=== PATIENT | female | born 1955 | race Caucasian/White ===

== ENCOUNTER 2017-05-11 22:35 | Emergency (ER) | payer MEDICARE, OTHER ==
[~2017-05-11] VITALS: Ht 170.2 cm; Wt 64.0 kg
[~2017-05-11 22:35] MED LIST: AZITHROMYCIN250 MG ORAL; PROMETHAZINE-C118 M1 ORAL
[2017-05-11 22:45] VITALS: BP 120/65
[2017-05-11] MEDS ORDERED: Albuterol/Ipratropium 3ml neb HHN ONE (23:00)
[2017-05-11] MEDS ORDERED: AZITHROMYCIN250 MG ORAL (23:33)
[2017-05-11] MEDS ORDERED: ALBUTEROL SULF8.5 GM INH (23:33)
[2017-05-11] MEDS ORDERED: PREDNISONE20 MG ORAL (23:33)
--- NOTE | 2017-05-11 23:34 | Emergency Room Report ---
History of Present Illness General Chief Complaint: Upper Respiratory Illness Source: Patient Present Illness HPI Is a 61-year-old female with no past medical history. She presents with chief complaint of coughing congestion for last 2 weeks. Cough is worsening. Increasing phlegm. No fever chills but no nausea vomiting. Worse with exertion. Worse with lying flat. could not sleep because of coughing Allergies: Coded Allergies: PENICILLINS (Unverified Allergy, Unknown, 08/22/14) Patient History Past Medical History: see triage record, old chart reviewed Past Surgical History: other Pertinent Family History: none Social History: Denies: smoking Now: No Immunizations: other Reviewed Nursing Documentation: PMH: Agreed, PSxH: Agreed Nursing Documentation-PMH Past Medical History: No History, Except For Hx Gastrointestinal Problems: No - Hep. C Review of Systems Eye: Denies: eye pain, blurred vision ENT: Denies: ear pain, nose congestion, throat swelling Respiratory: Reports: cough, shortness of breath Cardiovascular: Denies: chest pain, palpitations Gastrointestinal: Denies: abdominal pain, diarrhea, nausea, vomiting Musculoskeletal: Denies: back pain, joint pain Skin: Denies: rash Neurological: Denies: headache, numbness Endocrine: Denies: increased thirst, increased urine Hematologic/Lymphatic: Denies: easy bruising All Other Systems: negative except mentioned in HPI Physical Exam Vital Signs Date Time Temp Pulse Resp B/P (MAP) Pulse Ox O2 Delivery O2 Flow Rate FiO2 05/11/17 22:39 97.9 88 17 120/65 97 Room Air 05/11/17 23:09 21 vitals normal Sp02 EP Interpretation: reviewed, normal General Appearance: well appearing, no apparent distress, alert Head: normocephalic, atraumatic Eyes: bilateral eye PERRL, bilateral eye EOMI ENT: hearing grossly normal, normal pharynx Neck: full range of motion, supple, no meningismus Respiratory: chest non-tender, rhonchi, other - Coughing fits with inspiration Cardiovascular #1: regular rate, rhythm, no murmur Gastrointestinal: normal bowel sounds, non tender, no mass, no organomegaly, no bruit, non-distended Musculoskeletal: back normal, gait/station normal, normal range of motion Psychiatric: mood/affect normal Skin: warm/dry Medical Decision Making Diagnostic Impression: Primary Impression: Upper respiratory infection Qualified Codes: J06.9 - Acute upper respiratory infection, unspecified Additional Impression: Atypical pneumonia ER Course Patient with upper respiratory infection now complicated by bronchospasm and possible early pneumonia. Better after breathing treatment. We'll discharge home with antibiotics. No evidence of ACS, PE, dissection. Clinically no evidence of CHF. Last Vital Signs Date Time Temp Pulse Resp B/P (MAP) Pulse Ox O2 Delivery O2 Flow Rate FiO2 05/11/17 23:09 79 22 93 Room Air 21 05/11/17 22:39 97.9 120/65 Status: improved Disposition: HOME, SELF-CARE Condition: Stable Scripts Azithromycin* (ZITHROMAX*) 250 Mg Tablet 250 MG ORAL DAILY, #6 TAB 0 Refills Take two tablets by mouth today, then take one tablet by mouth daily for four days Prov: MILLIE ZURITA M.D. 05/11/17 Prednisone* (PREDNISONE*) 20 Mg Tablet 60 MG ORAL DAILY, #15 TAB Prov: MILLIE ZURITA M.D. 05/11/17 Albuterol Sulfate* (ALBUTEROL SULFATE MDI*) 8.5 Gm Hfa.aer.ad 2 PUFF INH Q4H Y for cough/wheezing, #1 EA 0 Refills Prov: MILLIE ZURITA M.D. 05/11/17 Patient Instructions: Upper Respiratory Infection, Adult Additional Instructions: Followup with your DrCori in 7 days return worse. MILLIE ZURITA M.D. May 11, 2017 23:34
[2017-05-11 23:45] VITALS: BP 120/65
== END 2017-05-12 01:04 | disposition home or self-care (01) ==
LOC: EMR 22:55
DX: J06.9 Acute upper respiratory infection, unspecified (principal); J18.9 Pneumonia, unspecified organism; Z88.0 Allergy status to penicillin
CPT/HCPCS: 99284; J7620

== ENCOUNTER 2019-08-17 12:13 | Emergency (ER) | payer MEDICARE, OTHER ==
[~2019-08-17] VITALS: Ht 165.1 cm; Wt 72.6 kg
[~2019-08-17 12:13] MED LIST changes: +ALBUTEROL SULF8.5 GM INH; +PREDNISONE20 MG ORAL
--- NOTE | 2019-08-17 12:30 | NUR ---
ED Nurse Note: Pt came in to ED d/t pain on tailbone and LT hip with unk injury. Pt states difficulty ambulating. Pt also verbalized she uses oxygen supplementation at home. Previously admitted at [facility] for cirrhosis and confusion. Placed on bed and gown; will continue to monitor.
--- NOTE | 2019-08-17 12:34 | NUR ---
ED Nurse Note: ERMD at bedside.
--- NOTE | 2019-08-17 12:35 | NUR ---
ED Nurse Note: Pt was hooked to 4LPM via NC. now satting at 94%. will continue to monitor.
--- NOTE | 2019-08-17 12:47 | Emergency Room Report ---
History of Present Illness General Chief Complaint: Lower Back Pain or Injury Source: Patient Present Illness HPI Patient presents with complaints of low back pain Reports that she has pain to the lower tailbone and lower back area for the past 2 weeks slowly progressing and worsening Patient reports that today she was having difficulty standing Denies any bowel or urinary incontinence Denies any saddle paresthesia Patient reports recent hospitalization for Hepatic encephalopathy Denies any dysuria denies any other recent fall or trauma Denies any fevers or chills pain is 5 out of 10 localized to the mid lower back region involving the lower buttock and tailbone area Allergies: Coded Allergies: PENICILLINS (Unverified Allergy, Unknown, 08/22/14) COVID-19 Screening Contact w/high risk pt: No Recent Travel to affected area: No Experienced COVID-19 symptoms?: No Patient History Past Medical History: see triage record Last Menstrual Period: na Reviewed Nursing Documentation: PMH: Agreed; PSxH: Agreed Nursing Documentation-PMH Past Medical History: No History, Except For Hx Gastrointestinal Problems: No - Hep. C, cirrhosis Review of Systems All Other Systems: negative except mentioned in HPI Physical Exam Vital Signs Date Time Temp Pulse Resp B/P (MAP) Pulse Ox O2 Delivery O2 Flow Rate FiO2 08/17/19 12:25 98.8 93 20 144/72 (96) 84 Room Air Sp02 EP Interpretation: reviewed, normal General Appearance: no apparent distress Head: normocephalic, atraumatic Eyes: bilateral eye PERRL, bilateral eye EOMI ENT: hearing grossly normal, EOM grossly intact Neck: supple Respiratory: no retraction, no accessory muscle use, crackles - Both lower lobes Cardiovascular #1: regular rate, rhythm Gastrointestinal: non tender, soft Musculoskeletal: other - Tender on palpation paraspinal L3-L4 5 area, also down to the sacral region Neurologic: alert, oriented x3 Psychiatric: anxious Skin: no rash Lymphatic: no adenopathy Medical Decision Making Diagnostic Impression: Primary Impression: Sacral fracture, closed ER Course Given the history and presentation multiple differentials and consideration including but not limited to orthopedic process neurological neurosurgical,, infectious process patient had extensive blood work and imaging initiated CT does reveal likely old L1 fracture there is also bilateral sacral Nondisplaced fractures The case is discussed with orthopedics There is no further emergent process required patient remains neurologically intact has appropriate sensory examination Moving all extremities equally She will require close outpatient follow-up and reports that she does have a primary physician to do so blood work is consistent with liver disease With multiple abnormalities patient is discussed regarding inpatient care versus outpatient follow-up and reports that she feels significantly better and would like to be at home Patient does not have any other emergent pathology found at this time And is stable for close outpatient follow-up Labs Test 08/17/19 12:47 08/17/19 13:25 White Blood Count 3.7 K/UL (4.8-10.8) Red Blood Count 4.10 M/UL (4.20-5.40) Hemoglobin 11.0 G/DL (12.0-16.0) Hematocrit 33.6 % (37.0-47.0) Mean Corpuscular Volume 82 FL (80-99) Mean Corpuscular Hemoglobin 26.8 PG (27.0-31.0) Mean Corpuscular Hemoglobin Concent 32.8 G/DL (32.0-36.0) Red Cell Distribution Width 14.0 % (11.6-14.8) Platelet Count 79 K/UL (150-450) Mean Platelet Volume 6.2 FL (6.5-10.1) Neutrophils (%) (Auto) % (45.0-75.0) Lymphocytes (%) (Auto) % (20.0-45.0) Monocytes (%) (Auto) % (1.0-10.0) Eosinophils (%) (Auto) % (0.0-3.0) Basophils (%) (Auto) % (0.0-2.0) Sodium Level 145 MMOL/L (136-145) Potassium Level 3.5 MMOL/L (3.5-5.1) Chloride Level 111 MMOL/L (98-107) Carbon Dioxide Level 20 MMOL/L (21-32) Anion Gap 15 mmol/L (5-15) Blood Urea Nitrogen 19 mg/dL (7-18) Creatinine 1.3 MG/DL (0.55-1.30) Estimat Glomerular Filtration Rate 41.3 mL/min (>60) Glucose Level 113 MG/DL (74-106) Calcium Level 8.2 MG/DL (8.5-10.1) Total Bilirubin 2.5 MG/DL (0.2-1.0) Direct Bilirubin 1.3 MG/DL (0.0-0.3) Aspartate Amino Transf (AST/SGOT) 59 U/L (15-37) Alanine Aminotransferase (ALT/SGPT) 31 U/L (12-78) Alkaline Phosphatase 120 U/L (46-116) Total Creatine Kinase 204 U/L (26-308) Troponin I 0.007 ng/mL (0.000-0.056) Total Protein 6.4 G/DL (6.4-8.2) Albumin 2.6 G/DL (3.4-5.0) Globulin 3.8 g/dL Albumin/Globulin Ratio 0.7 (1.0-2.7) Lipase 115 U/L (73-393) Urine Color Brown Urine Appearance Cloudy Urine pH 5 (4.5-8.0) Urine Specific Griffin 1.020 (1.005-1.035) Urine Protein 4+ (NEGATIVE) Urine Glucose (UA) Negative (NEGATIVE) Urine Ketones 1+ (NEGATIVE) Urine Blood 5+ (NEGATIVE) Urine Nitrite Positive (NEGATIVE) Urine Bilirubin 1+ (NEGATIVE) Urine Ictotest Negative (NEGATIVE) Urine Urobilinogen 1 MG/DL (0.0-1.0) Urine Leukocyte Esterase 2+ (NEGATIVE) Urine RBC Tntc /HPF (0 - 2) Urine WBC 5-10 /HPF (0 - 2) Urine Squamous Epithelial Cells Occasional /LPF Urine Bacteria Many /HPF (NONE) Labs Test 08/17/19 12:47 08/17/19 13:25 White Blood Count 3.7 K/UL (4.8-10.8) Red Blood Count 4.10 M/UL (4.20-5.40) Hemoglobin 11.0 G/DL (12.0-16.0) Hematocrit 33.6 % (37.0-47.0) Mean Corpuscular Volume 82 FL (80-99) Mean Corpuscular Hemoglobin 26.8 PG (27.0-31.0) Mean Corpuscular Hemoglobin Concent 32.8 G/DL (32.0-36.0) Red Cell Distribution Width 14.0 % (11.6-14.8) Platelet Count 79 K/UL (150-450) Mean Platelet Volume 6.2 FL (6.5-10.1) Neutrophils (%) (Auto) % (45.0-75.0) Lymphocytes (%) (Auto) % (20.0-45.0) Monocytes (%) (Auto) % (1.0-10.0) Eosinophils (%) (Auto) % (0.0-3.0) Basophils (%) (Auto) % (0.0-2.0) Sodium Level 145 MMOL/L (136-145) Potassium Level 3.5 MMOL/L (3.5-5.1) Chloride Level 111 MMOL/L (98-107) Carbon Dioxide Level 20 MMOL/L (21-32) Anion Gap 15 mmol/L (5-15) Blood Urea Nitrogen 19 mg/dL (7-18) Creatinine 1.3 MG/DL (0.55-1.30) Estimat Glomerular Filtration Rate 41.3 mL/min (>60) Glucose Level 113 MG/DL (74-106) Calcium Level 8.2 MG/DL (8.5-10.1) Troponin I 0.007 ng/mL (0.000-0.056) Chest X-Ray Diagnostic Results Chest X-Ray Diagnostic Results : Chest X-Ray Ordered: Yes # of Views/Limited/Complete: 1 View Indication: Chest Pain EP Interpretation: Yes Interpretation: no consolidation, no effusion, no acute cardiopulmonary disease Impression: No acute disease - Lower lobe atelectasis Electronically Signed by: Gerry Lantigua DO CT/MRI/US Diagnostic Results CT/MRI/US Diagnostic Results : Impression CT pelvicIMPRESSION: Nondisplaced fractures of bilateral sacral ala. CT L-spineIMPRESSION: 1. Displaced fracture of the right posterior 11th rib partially visualized. 2. Probable chronic compression deformities/endplate irregularities of the L1 vertebral body. If there is persistent concern for acute fracture component, consider further evaluation with MRI. 3. Nonspecific right adrenal nodule. Last Vital Signs Date Time Temp Pulse Resp B/P (MAP) Pulse Ox O2 Delivery O2 Flow Rate FiO2 08/17/19 12:25 98.8 93 20 144/72 (96) 84 Room Air Status: improved Disposition: HOME, SELF-CARE Condition: Improved Scripts Tramadol Hcl* (ULTRAM*) 50 Mg Tablet 50 MG ORAL Q6H PRN for For Pain, #15 TAB 0 Refills Prov: Gerry Lantigua DO 08/17/19 Additional Instructions: Patient is provided with the discharge instructions notified to follow up with primary doctor in the next 2-3 days otherwise return to the er with any worsening symptoms. Please note that this report is being documented using DRAGON technology. This can lead to erroneous entry secondary to incorrect interpretation by the dictating instrument. Gerry Lantigua DO August 17, 2019 12:47
--- NOTE | 2019-08-17 12:55 | NUR ---
ED Nurse Note: X-ray at bedside done; pt went on CT via gurney accompanied by rudi.
[2019-08-17 12:56] VITALS: BP 144/72
[2019-08-17 13:14] LABS: HEMATOCRIT 33.6 % (37.0-47.0); MEAN CORPUSCULAR VOLUME 82 FL (80-99); PLATELET COUNT 79 K/UL (150-450); WHITE BLOOD COUNT 3.7 K/UL (4.8-10.8)
[2019-08-17 13:25] LABS: ANION GAP 15 mmol/L (5-15); BLOOD UREA NITROGEN 19 mg/dL (7-18); CALCIUM 8.2 MG/DL (8.5-10.1); CARBON DIOXIDE 20 MMOL/L (21-32); CHLORIDE 111 MMOL/L (98-107); CREATININE 1.3 MG/DL (0.55-1.30); POTASSIUM 3.5 MMOL/L (3.5-5.1); SODIUM 145 MMOL/L (136-145)
[2019-08-17] MEDS ORDERED: Ketorolac 30mg Inj IV ONE (13:30)
--- NOTE | 2019-08-17 13:34 | Diagnostic Imaging Report ---
EXAM: CT Lumbar Spine Without Intravenous Contrast CLINICAL HISTORY: PAIN TECHNIQUE: Axial computed tomography images of the lumbar spine without intravenous contrast. CTDI is 7.2 mGy and DLP is 259.3 mGy-cm. One or more of the following dose reduction techniques were used: automated exposure control, adjustment of the mA and/or kV according to patient size, use of iterative reconstruction technique. COMPARISON: None FINDINGS: Bones: Osteopenia. Probable hemangioma in the L4 vertebral body. Schmorl's node deformity of the superior endplate and irregularity of the inferior endplate of L1 with chronic appearing mild compression of the L1 vertebral body. Displaced fracture of the right posterior 11th rib partially visualized. Disc spaces: No subluxation. Degenerative changes of the spine. Mild spinal canal stenosis at T11-12. Multilevel mild to moderate neural foraminal stenoses. Soft tissues: Normal. Other: Mild prominence of the wall of the distal esophagus is partially visualized and incompletely evaluated. Possible small hiatal hernia. Nonspecific right adrenal nodule. Calcified granulomas in a probably enlarged spleen. Atherosclerotic changes of the vasculature IMPRESSION: 1. Displaced fracture of the right posterior 11th rib partially visualized. 2. Probable chronic compression deformities/endplate irregularities of the L1 vertebral body. If there is persistent concern for acute fracture component, consider further evaluation with MRI. 3. Nonspecific right adrenal nodule.
[2019-08-17 13:35] LABS: ALANINE AMINOTRANSFERASE 31 U/L (12-78); ALBUMIN 2.6 G/DL (3.4-5.0); ALBUMIN/GLOBULIN RATIO 0.7 (1.0-2.7); ALKALINE PHOSPHATASE 120 U/L (46-116); ASPARTATE AMINO TRANSFERASE 59 U/L (15-37); BILIRUBIN,TOTAL 2.5 MG/DL (0.2-1.0); CREATINE KINASE 204 U/L (26-308)
--- NOTE | 2019-08-17 13:45 | Diagnostic Imaging Report ---
EXAM: CT Pelvis Without Intravenous Contrast CLINICAL HISTORY: PAIN TECHNIQUE: Axial computed tomography images of the pelvis without intravenous contrast. CTDI is 5.3 mGy and DLP is 166.4 mGy-cm. One or more of the following dose reduction techniques were used: automated exposure control, adjustment of the mA and/or kV according to patient size, use of iterative reconstruction technique. COMPARISON: None FINDINGS: Kidneys and ureters: Punctate nonobstructing left renal stone. Bowel: Unremarkable. No obstruction. No mucosal thickening. Appendix: No findings to suggest acute appendicitis. Intraperitoneal space: Small amount of free fluid in the pelvis. No free air. Bladder: Underdistended bladder limits evaluation. No stones. Reproductive: Prior hysterectomy. Bones/joints: Nondisplaced fractures of bilateral sacral ala. Osteopenia. Probable small bone island in the right femoral head. Probable hemangioma partially visualized in the L4 vertebral body. No dislocation. Soft tissues: Small fat-containing left renal hernia. Small injection granuloma in the right gluteal soft tissues. Mild body wall edema. Small umbilical hernia containing fat and fluid. Vasculature: Atherosclerotic changes of the vasculature. No lower abdominal aortic aneurysm. Lymph nodes: Unremarkable. No enlarged lymph nodes. IMPRESSION: Nondisplaced fractures of bilateral sacral ala.
[2019-08-17 13:53] LABS: APPEARANCE,URINE CLOUDY; BILIRUBIN, URINE 1+ (NEGATIVE); COLOR,URINE BROWN; GLUCOSE, URINE (UA) NEGATIVE (NEGATIVE); KETONES,URINE 1+ (NEGATIVE); LEUKOCYTE ESTERASE ,URINE 2+ (NEGATIVE); NITRITE,URINE POSITIVE (NEGATIVE); PH,URINE 5 (4.5-8.0); PROTEIN,URINE 4+ (NEGATIVE); UROBILINOGEN,URINE 1 MG/DL (0.0-1.0)
[2019-08-17 13:55] LABS: BILIRUBIN,DIRECT 1.3 MG/DL (0.0-0.3)
[2019-08-17] MEDS ORDERED: TRAMADOL HCL50 MG ORAL (13:58)
[2019-08-17 14:15] VITALS: BP 144/72
--- NOTE | 2019-08-17 14:15 | NUR ---
ER DISCHARGE NOTE: Pt is cleared to be discharged per ERMD, pt is aox4, on room air, with stable vital signs. pt was given dc and prescription instructions, pt was able to verbalize understanding, pt id band and iv site removed without complications. pt took all belongings.
--- NOTE | 2019-08-17 17:41 | Diagnostic Imaging Report ---
EXAM: XR Chest, 1 View CLINICAL HISTORY: CP TECHNIQUE: Frontal view of the chest. COMPARISON: None FINDINGS: Hardware: None. Lungs/pleura: Left basilar opacity may represent atelectasis. No focal consolidation. No pleural effusion or pneumothorax. Heart/mediastinum: Borderline size of the cardiac silhouette. Soft tissues: Unremarkable. Bones: No acute fracture. Degenerative changes of the acromioclavicular joints. Upper abdomen: Normal. IMPRESSION: Left basilar opacity likely represents atelectasis. No focal consolidation.
== END 2019-08-17 14:15 | disposition home or self-care (01) ==
LOC: EMR 12:40 → CANBEDREQ 14:08 → EMR 14:15
DX: S32.10XA Unspecified fracture of sacrum, initial encounter for closed fracture (principal); K42.9 Umbilical hernia without obstruction or gangrene; Z90.710 Acquired absence of both cervix and uterus; S22.31XA Fracture of one rib, right side, initial encounter for closed fracture; X58.XXXA Exposure to other specified factors, initial encounter; Y92.9 Unspecified place or not applicable; Z86.19 Personal history of other infectious and parasitic diseases; K74.60 Unspecified cirrhosis of liver
CPT/HCPCS: 36415; 71045; 72131; 72192; 80053; 81003; 82248; 82550; 83690; 84484; 85007; 85025; 87086; 93005; 96374; 99284; J1885

== ENCOUNTER 2019-11-11 01:13 | Emergency (ER) | payer MEDICARE, MEDICAID ==
[~2019-11-11] VITALS: Ht 170.2 cm; Wt 63.5 kg
[~2019-11-11 01:13] MED LIST changes: +TRAMADOL HCL50 MG ORAL
[2019-11-11 01:32] VITALS: BP 163/82
[2019-11-11] MEDS ORDERED: TYLENOL EXTRA500 MG ORAL (01:39)
[2019-11-11] MEDS ORDERED: OFLOXACIN5 ML LEFT EAR (01:39)
[2019-11-11] MEDS ORDERED: Acetaminophen 500mg (ES) tab ORAL ONE (01:45)
[2019-11-11 01:48] VITALS: BP 163/82
--- NOTE | 2019-11-11 04:52 | Emergency Room Report ---
History of Present Illness General Chief Complaint: Earache Source: Patient Present Illness HPI 64-year-old female presents the ED complaining of left ear pain. Woke up tonight with the pain. Throbbing, 10 out of 10, nonradiating. Denies fevers or chills. Denies sore throat cough or congestion. Denies sick contacts or recent travel. No other aggravating relieving factors. Denies any other associated symptoms Allergies: Coded Allergies: PENICILLINS (Unverified Allergy, Unknown, 08/22/14) COVID-19 Screening Contact w/high risk pt: No Recent Travel to affected area: No Experienced COVID-19 symptoms?: No COVID-19 Testing performed INTERNAL MEDICINE DOCTOR: No Patient History Past Medical History: COPD Past Surgical History: none Pertinent Family History: none Social History: Denies: smoking, alcohol use, drug use Last Menstrual Period: 1997 Now: No : 1 Para: 0 Immunizations: UTD Reviewed Nursing Documentation: PMH: Agreed; PSxH: Agreed Nursing Documentation-PMH Hx COPD: Yes Hx Gastrointestinal Problems: No - HEP c Review of Systems All Other Systems: negative except mentioned in HPI Physical Exam Vital Signs Date Time Temp Pulse Resp B/P (MAP) Pulse Ox O2 Delivery O2 Flow Rate FiO2 11/11/19 01:18 99.1 65 19 163/82 (109) 80 Room Air Sp02 EP Interpretation: reviewed, normal General Appearance: no apparent distress, alert, GCS 15, non-toxic Head: normocephalic, atraumatic Eyes: bilateral eye normal inspection, bilateral eye PERRL ENT: hearing grossly normal, normal pharynx, no angioedema, normal voice, other - L ear canal swollen/erythematous Neck: full range of motion, supple/symm/no masses Respiratory: chest non-tender, lungs clear, normal breath sounds, speaking full sentences Cardiovascular #1: regular rate, rhythm, no edema Cardiovascular #2: 2+ carotid (R), 2+ carotid (L), 2+ radial (R), 2+ radial (L) , 2+ dorsalis pedis (R), 2+ dorsalis pedis (L) Gastrointestinal: normal bowel sounds, non tender, soft, non-distended, no guarding, no rebound Rectal: deferred Genitourinary: normal inspection, no CVA tenderness Musculoskeletal: back normal, normal range of motion, gait/station normal, non- tender Neurologic: alert, motor strength/tone normal, oriented x3, sensory intact, responsive, speech normal Psychiatric: judgement/insight normal, memory normal, mood/affect normal, no suicidal/homicidal ideation Reflexes: 3+ bicep (R), 3+ bicep (L), 3+ tricep (R), 3+ tricep (L), 3+ knee (R) , 3+ knee (L) Skin: no rash Lymphatic: no adenopathy Medical Decision Making Diagnostic Impression: Primary Impression: Otitis externa Qualified Codes: H60.502 - Unspecified acute noninfective otitis externa, left ear ER Course Hospital Course 64-year-old F presents to ED with pain L ear Differential diagnoses include: TM perforation, otitis externa, otitis media Clinical course Patient placed on stretcher. After initial history, physical exam reveals a female in no acute distress. L ear canal swollen/erythematous. TM appears unremarkable I discussed findings with patient. Likely otitis externa. Patient states she has had similar episodes whenever she gets water in her ear.. Given Tylenol. Will discharge with otic antibiotics. Recommend ENT. I will provide referral Diagnosis - otitis externa Stable and discharged to home with Rx ofloxacin otic. Followup with PMD/ENT. Return to ED if symptoms recur or worsen Last Vital Signs Date Time Temp Pulse Resp B/P (MAP) Pulse Ox O2 Delivery O2 Flow Rate FiO2 11/11/19 01:48 99.1 11/11/19 01:48 90 19 163/82 80 Room Air Status: improved Disposition: HOME, SELF-CARE Condition: Stable Scripts Acetaminophen* (TYLENOL EXTRA STRENGTH*) 500 Mg Tablet 500 MG ORAL Q8H PRN for Prn Headache/Temp > 101, #30 TAB 0 Refills Prov: Kam Lang MD 11/11/19 Ofloxacin (OFLOXACIN) 5 Ml Drops 10 DROP LEFT EAR DAILY for 7 Days, ML Prov: Kam Lang MD 11/11/19 Referrals: NON PHYSICIAN (PCP) Sam García MD Patient Instructions: Otitis Externa, [id number] Kam Lang MD Nov 11, 2019 04:52
== END 2019-11-11 01:48 | disposition home or self-care (01) ==
LOC: EMR 01:35
DX: H60.502 Unspecified acute noninfective otitis externa, left ear (principal); Z88.0 Allergy status to penicillin; Z86.19 Personal history of other infectious and parasitic diseases
CPT/HCPCS: 99282